=== PATIENT | female | born 2000 | race African-American/Black ===

== ENCOUNTER 2021-01-25 07:27 | Emergency (ER) | payer OTHER ==
[~2021-01-25] VITALS: Ht 149.9 cm; Wt 72.6 kg
--- NOTE | ~2021-01-25 | EMS ---
[address] [place] [address] EMS Patient Care Report Name: ALESSIA DUEÑAS Room: [facility]#: [id number] Admission: 01/25/21 Attend Phys: Discharge: Date of : [birth year] Report #: [id number] THIS REPORT FOR: //name// Report Transmitted: 01/25/2021 07:36 EMS Care Summary JUN BEASLEY Incident [id number] @ 01/25/2021 06:41 Incident Location [address] [place] [address] [place] [address] Patient ALESSIA DUEÑAS Female, 20 Years 2000 Patient Address [address] [place] [address] Patient History TIA, Patient Allergies No known allergies, Chief Complaint Abdominal pain/discomfort Disposition Transported No Lights/[place] Dispatch Reason No Other Appropriate Choice Transported To [facility] Narrative Dispatched to address noted for abdominal pain. [facility] en route and on scene at time noted. Arrived and the family stated that no one in the residence had called 911. We were about to clear and the patient came downstairs and informed her family that she had called without there knowledge. patient stated that she had abdominal pain noted in in all four quadrants since this morning when she vomited twice and had some diarrhea. Patient stated that she has never had then [address] [place] [address] EMS Patient Care Report Name: ALESSIA DUEÑAS Room: [facility]#: [id number] Admission: 01/25/21 Attend Phys: Discharge: Date of : [birth year] Report #: [id number] before. We talked about hospitals in the area and [facility] was agreed upon. Patient was able to ambulate to stretcher and was then buckled in. Once in ambulance, vitals where taken at time noted. IV was obtained with blood glucose as noted. Patient was laying on her side and moaning in pain. Patient stated that there was no specific spot for pain but she was stated it moved around to her back. Patient stated no chance she could be and no history of GI issues. While en route, vitals where taken at time noted. Patient continued to stated pain and was moving around multiple times. Patient attempted to vomit one time. Radio report was given at time noted. Arrived and took patient to triage. Patient was moved to a wheel chair and was then taken into the triage room. RN was given verbal report and signed for patient care. patient signed for self. END REPORT EMT-P Abel Multani Initial Vitals @06:49Pain: 02/05, @07:18Pain: 02/05, @06:58SpO2: 100, @07:00SpO2: 100, @07:02SpO2: 100, @07:12SpO2: 99, @06:58P: 82,R: 18,BP: 148/118, @07:00P: 80,R: 18,BP: 138/74, @06:58GCS: 15, @07:00GCS: 15, @06:49 @07:01Glucose: 112, Assessments @06:49MENTAL:SKIN:HEENT:LUNG SOUNDS:ABDOMEN:PELVIS//GI:EXTREMITIES:PULSE:NEURO: Impression Vomiting Procedures @07:10Ondansetron - 4.000 Milligrams (mg) - Intravenous (IV)Response: Unchanged@07:00 cc () Site: Antecubital-LeftResponse: UnchangedSucceeded Timeline 06:40,Call Received 06:40,Dispatch Notified 06:40,Psap Call 06:41,Dispatched 06:41,En Route 06:47,On Scene 06:49,[place] [address] EMS Patient Care Report Name: ALESSIA DUEÑAS Room: [facility]#: [id number] Admission: 01/25/21 Attend Phys: Discharge: Date of : [birth year] Report #: [id number] 06:49,BP: / M,PULSE: ,RR: R,SPO2: Ox,ETCO2: ,BG: ,PAIN: 9,GCS: , 06:49,BP: / M,PULSE: ,RR: R,SPO2: Ox,ETCO2: ,BG: ,PAIN: ,GCS: , 06:58,BP: / M,PULSE: ,RR: R,SPO2: 100 Ox,ETCO2: ,BG: ,PAIN: ,GCS: , 06:58,BP: 148/118 M,PULSE: 82,RR: 18 R,SPO2: Ox,ETCO2: ,BG: ,PAIN: ,GCS: , 06:58,BP: / M,PULSE: ,RR: R,SPO2: Ox,ETCO2: ,BG: ,PAIN: ,GCS: 15, 07:00,BP: / M,PULSE: ,RR: R,SPO2: 100 Ox,ETCO2: ,BG: ,PAIN: ,GCS: , 07:00,BP: 138/74 M,PULSE: 80,RR: 18 R,SPO2: Ox,ETCO2: ,BG: ,PAIN: ,GCS: , 07:00,BP: / M,PULSE: ,RR: R,SPO2: Ox,ETCO2: ,BG: ,PAIN: ,GCS: 15, 07:00, cc Site: Antecubital-Left,Response: UnchangedSucceeded, 07:01,BP: / M,PULSE: ,RR: R,SPO2: Ox,ETCO2: ,B,PAIN: ,GCS: , 07:02,BP: / M,PULSE: ,RR: R,SPO2: 100 Ox,ETCO2: ,BG: ,PAIN: ,GCS: , 07:03,Depart Scene 07:10,Ondansetron - 4.000 Milligrams (mg) - Intravenous (IV),Response: Unchanged 07:12,BP: / M,PULSE: ,RR: R,SPO2: 99 Ox,ETCO2: ,BG: ,PAIN: ,GCS: , 07:18,BP: / M,PULSE: ,RR: R,SPO2: Ox,ETCO2: ,BG: ,PAIN: 9,GCS: , 07:23,At Destination 07:31,Call Closed Disclaimer v1.1 Copyright 2020 [employer] This EMS Care Summary contains data elements from the applicable legal record (which may be displayed differently). It is designed to provide pertinent information for the following purposes: continuity of care, clinical quality, and state data reporting. The complete legal record is available to ED staff and administrators of the receiving hospital in [employer] Patient Tracker. All data is provided "as is."
[2021-01-25 08:49] LABS: ABSOLUTE MONOCYTES 0.3 thou/uL (0.0-1.2); ABSOLUTE NEUTROPHILS 6.1 thou/uL (1.6-8.1); BASOPHILS 0.3 %; EOSINOPHILS 0.5 %; HEMATOCRIT 43.3 % (37.0-47.0); HEMOGLOBIN 14.1 gm/dL (12.0-15.0); LYMPHOCYTES 13.5 %; MCH 25.8 pg (26.0-34.0); MCHC 32.5 g/dL (28.0-37.0); MCV 79.3 fL (80.0-100.0); MONOCYTES 4.6 %; MPV 9.4 fl. (7.2-11.1); NUCLEATED RBCS 0 /100WBC; PLATELET COUNT* 268 thou/uL (150-400); POLYS 81.1 %; RBC 5.46 mil/uL (4.20-5.00); RDW-CV 15.5 % (10.5-14.5); WBC 7.5 thou/uL (4.0-11.0)
[2021-01-25 08:55] LABS: CALCIUM 9.2 mg/dL (8.5-10.1); CREATININE 0.8 mg/dL (0.6-1.3); POTASSIUM 3.7 mmol/L (3.5-5.1)
[2021-01-25 09:00] LABS: ALBUMIN 3.8 g/dL (3.4-5.0); TOTAL BILIRUBIN 0.4 mg/dL (<0.1-1.0); TOTAL PROTEIN 8.5 g/dL (6.4-8.2)
[2021-01-25 09:42] LABS: URINE BILIRUBIN NEGATIVE (Negative); URINE BLOOD 2+ (Negative); URINE CLARITY CLEAR; URINE COLOR YELLOW; URINE GLUCOSE-RANDOM NEGATIVE (Negative); URINE KETONES NEGATIVE (Negative); URINE LEUKOCYTES 2+ (Negative); URINE NITRITE NEGATIVE (Negative); URINE PROTEIN NEGATIVE (Negative); URINE SPECIFIC GRAVITY 1.015 (1.005-1.030); URINE UROBILINOGEN 0.2 E.U./dl (0.2-1.0)
[2021-01-25 10:15] LABS: CASTS None Seen /LPF (None Seen); CRYSTALS None Seen /LPF (None Seen); MUCUS 4-6 Moderate strn/LPF (None Seen); SQUAMOUS 4-10 Moderate /LPF (0-3); URINE RBC 3-10 Few /HPF (0-2); URINE WBC 6-15 Few /HPF (0-5)
[2021-01-25] MEDS ORDERED: ZOFRAN ODT4 MG PO (13:14)
[2021-01-25] MEDS ORDERED: HYDROCODON-ACE1 EA11 PO (13:14)
[2021-01-25 13:31] VITALS: BP 134/72
== END 2021-01-25 13:33 | disposition home or self-care (01) ==
LOC: M.ERS 07:27
PROVIDERS: Emergency Medicine
DX: K80.20 Calculus of gallbladder without cholecystitis without obstruction (principal); R10.84 Generalized abdominal pain; F12.90 Cannabis use, unspecified, uncomplicated